=== PATIENT | female | born 1965 | race African-American/Black ===

== ENCOUNTER 2021-03-06 06:44 | Day surgery (SDC) | payer BC ==
[2021-03-04 10:10] VITALS: BMI 36.8
[2021-03-06] MEDS ORDERED: ROPIVACAINE HCL 0.5% 30ML VIAL ONE (06:55)
[2021-03-06] MEDS ORDERED: MIDAZOLAM HCL 2 MG/2 ML SINGLE DOSE VIAL ONE (06:55)
[2021-03-06] MEDS ORDERED: PROPOFOL 20 ML ONE ×4 (08:15→08:23)
[2021-03-06] MEDS ORDERED: oxyCODONE HCL 5 MG TABLET PO PRN (10:35)
[2021-03-06] MEDS ORDERED: ONDANSETRON 4 MG/2 ML VIAL IVPUSH PRN (10:35)
[2021-03-06] MEDS ORDERED: LACTATED RINGERS SOLUTION 1,000 ML IV SCH (10:45)
[2021-03-06 11:34] VITALS: BP 121/70; PULSE 79; TEMP 98.2
== END 2021-03-06 11:34 | disposition home or self-care (01) ==
LOC: FASU 06:44
PROVIDERS: ATTEND Orthopaedic Surgery
PROC: 0LN60ZZ Release Left Lower Arm and Wrist Tendon, Open Approach (ICD-10-PCS; 2021-03-06)
PROC: 0PSJ04Z Reposition Left Radius with Internal Fixation Device, Open Approach (ICD-10-PCS; principal; 2021-03-06 08:00)
DX: S52.572A Other intraarticular fracture of lower end of left radius, initial encounter for closed fracture (principal); X58.XXXA Exposure to other specified factors, initial encounter; Y93.9 Activity, unspecified; Y92.9 Unspecified place or not applicable
CPT/HCPCS: 25290; 25609; C1713; 73110-TC-LT-FY; 73610-TC-LT-FY; 73630-TC-LT; 94760

== ENCOUNTER 2021-10-21 13:51 | Observation (INO) | payer BC ==
[2021-10-21 14:08] VITALS: BMI 37.8
[2021-10-21] MEDS ORDERED: ASPIRIN 81 MG CHEWABLE TABLETS PO ONE (14:54)
[2021-10-21] MEDS ORDERED: ASPIRIN 325 MG TABLET ONE (14:57)
[2021-10-21] MEDS ORDERED: ASPIRIN 81 MG CHEWABLE TABLETS ONE (14:58)
[2021-10-21 15:25] LABS: INR 1.09 (0.83-1.09); PROTHROMBIN TIME (PATIENT) 12.5 SEC (9.7-13.0)
[2021-10-21 15:28] LABS: ACTIVATED PTT 32.5 SECONDS (25.2-36.5); BLOOD UREA NITROGEN 13.4 mg/dL (7-18); CALCIUM 9.7 mg/dL (8.5-10.1); MAGNESIUM 2.3 mg/dL (1.8-2.4)
[2021-10-21 15:31] LABS: CREATININE 0.7 mg/dL (0.55-1.3)
[2021-10-21 15:33] LABS: BILIRUBIN,TOTAL 0.5 mg/dL (0.2-1); TOT PROT 8.5 g/dl (6.4-8.2)
[2021-10-21 15:39] LABS: BASO % 0.4 % (0-2.0); EOS % 0.9 % (0-4.5); HEMATOCRIT 34.2 % (32.4-45.2); LYMPH % 39.1 % (8-40); MCH 28.1 pg (25.7-33.7); MCHC 35.2 g/dl (32.0-36.0); MEAN CELL VOLUME 79.8 fl (80-96); MEAN PLT VOLUME 7.9 fl (7.5-11.1); MONO % 4.9 % (3.8-10.2); NEUT % 54.7 % (42.8-82.8); PLATELET COUNT 281 10^3/uL (134-434); RBC 4.29 M/mm3 (3.60-5.2); RDW 15.3 % (11.6-15.6); WHITE BLOOD COUNT 6.3 K/mm3 (4.0-10.0)
[2021-10-21] MEDS ORDERED: MAG HYDROX/AL HYDROX/SIMETH 30 ML UNIT-DOSE CUP PO ONE (17:50)
[2021-10-21] MEDS ORDERED: PANTOPRAZOLE 40 MG TABLET PO ONE (17:50)
[2021-10-21] MEDS ORDERED: ATORVASTATIN CA 40 MG TABLET (FP) PO ONE (18:25)
[2021-10-21] MEDS ORDERED: PANTOPRAZOLE 40 MG TABLET ONE (19:03)
[2021-10-21] MEDS ORDERED: MAG HYDROX/AL HYDROX/SIMETH 30 ML UNIT-DOSE CUP ONE (19:04)
[2021-10-21] MEDS ORDERED: ENOXAPARIN NA (PORCINE) 40 MG/0.4 ML DISP.SYRIN SQ ONE (19:04)
[2021-10-21] MEDS ORDERED: ATORVASTATIN CA 40 MG TABLET (FP) ONE (19:04)
[2021-10-21] MEDS: ENOXAPARIN NA (PORCINE) 40 MG/0.4 ML DISP.SYRIN SQ SCH (19:08)
[2021-10-22] MEDS: ENOXAPARIN NA (PORCINE) 40 MG/0.4 ML DISP.SYRIN SQ SCH (09:32)
[2021-10-22 09:40] LABS: URINE APPEARANCE CLEAR; URINE BILIRUBIN NEGATIVE (NEGATIVE); URINE COLOR YELLOW; URINE GLUCOSE (UA) NEGATIVE (NEGATIVE); URINE KETONE NEGATIVE (NEGATIVE); URINE LEUK ESTERASE NEGATIVE (NEGATIVE); URINE NITRITE NEGATIVE (NEGATIVE); URINE PROTEIN NEGATIVE (NEGATIVE); URINE UROBILINOGEN 0.2 mg/dL (0.2-1.0)
[2021-10-22 10:51] LABS: HEMATOCRIT 38.8 % (32.4-45.2); HEMOGLOBIN 13.6 GM/dL (10.7-15.3); MCH 28.2 pg (25.7-33.7); MCHC 35.2 g/dl (32.0-36.0); MEAN PLT VOLUME 7.8 fl (7.5-11.1); PLATELET COUNT 290 10^3/uL (134-434); RBC 4.85 M/mm3 (3.60-5.2); RDW 15.3 % (11.6-15.6); WHITE BLOOD COUNT 5.3 K/mm3 (4.0-10.0)
[2021-10-22 11:19] LABS: BLOOD UREA NITROGEN 12.3 mg/dL (7-18); CALCIUM 9.7 mg/dL (8.5-10.1)
[2021-10-22 11:20] LABS: MAGNESIUM 2.4 mg/dL (1.8-2.4)
[2021-10-22 11:21] LABS: CREATININE 0.8 mg/dL (0.55-1.3)
[2021-10-22 11:22] LABS: PHOSPHOROUS 3.2 mg/dL (2.5-4.9)
[2021-10-22 17:38] VITALS: TEMP 97.8
[2021-10-22 18:14] VITALS: BP 141/90; PULSE 80
== END 2021-10-22 18:20 | disposition home or self-care (01) ==
LOC: JER 13:51 → JERBED 15:15
PROVIDERS: ADMIT Internal Medicine
DX: R07.9 Chest pain, unspecified (principal); E78.5 Hyperlipidemia, unspecified; E66.8 Other obesity; Z68.37 Body mass index [BMI] 37.0-37.9, adult; Z29.9 Encounter for prophylactic measures, unspecified
CPT/HCPCS: 36415; 71045-TC-FY; 80048; 80053; 80061; 81003; 83036; 83735; 84100; 84439; 84443; 84484; 85025; 85027; 85610; 85730; 87086; 93005; 93010; 93306-TC; 99285-25; C9803; G0378; U0003; U0005